=== PATIENT | male | born 1975 | race Caucasian/White ===

== ENCOUNTER 2016-06-17 17:55 | Emergency (ER) | payer BC ==
[2016-06-17] MEDS ORDERED: Ondansetron HCl/PF 4 MG/2 ML Vial ONE (18:32)
[2016-06-17 18:37] LABS: #Eosinphils 0.2 thou/uL (0.0-0.7); #Lymphocytes 2.3 thou/uL (1.20-3.40); #Monocytes 0.8 thou/uL (0.11-0.59); #Neutrophils 9.4 thou/uL (1.40-6.50); %Basophils 0.4 % (0.0-1.0); %Eosinophils 1.7 % (0.0-10.0); %Lymphocytes 18.2 % (21.0-51.0); %Monocytes 6.4 % (0.0-10.0); %Neutrophils 73.3 % (42.0-75.0); Hemoglobin 15.6 g/dL (14.0-18.0); Mean Corpuscular HGB CONC 34.1 g/dL (32.0-36.0); Mean Corpuscular Hemoglobin 31.5 pg (27.0-31.0); Mean Corpuscular Volume 92.3 fl (80.0-94.0); Mean Platelet Volume 7.4 fL (7.4-10.4); Platelet Count 266 thou/uL (130-400); RBC Distribution Width 11.8 % (11.5-14.5); Red Blood Cell (RBC) Count 4.95 mill/uL (4.70-6.10); White Blood Cell (WBC) Count 12.8 thou/uL (4.8-10.8)
[2016-06-17 18:56] LABS: ALT (SGPT) 81 U/L (0-55); AST (SGOT) 57 U/L (5-34); Albumin 4.8 g/dL (3.5-5.0); Alkaline Phosphatase 57 U/L (40-150); Anion Gap 19 mmol/L (10-20); BUN (Urea Nitrogen) 16 mg/dL (8.9-20.6); Bilirubin, Total 0.5 mg/dL (0.2-1.2); Calc. Creatinine Clearance 0 mL/min (70-130); Carbon Dioxide 24 mmol/L (22-29); Chloride 101 mmol/L (98-107); Estimated GFR-MDRD 73; Glucose 108 mg/dL (70-105); Lipase 10 U/L (8-78); Potassium 4.3 mmol/L (3.5-5.1); Protein, Total 7.8 g/dL (6.0-8.3); Sodium 140 mmol/L (136-145)
[2016-06-17] MEDS ORDERED: Ketorolac Tromethamine 30 MG/ML VIAL ONE (19:01)
--- NOTE | 2016-06-17 20:33 | CT ---
ABDOMEN CT WITH CONTRAST PELVIS CT WITH CONTRAST HISTORY: Left-sided flank pain. COMPARISON: None. TECHNIQUE: An abdomen and pelvis CT are performed without IV or oral contrast, utilizing a renal stone protocol . Coronal reformatted images are submitted for interpretation. FINDINGS ABDOMEN: The lungs bases are clear. There is a limited evaluation of the solid organs, due to lack of IV contrast. Grossly normal atten uation of the spleen, pancreas, and adrenal glands. Diffuse hypoattenuation of the liver, due to hepatic steatosis. A focal area of fatty sparing in th e caudate lobe is noted. The gallbladder is unremarkable. No mesenteric mass, lymphadenopathy, free air, or free fluid. Limited evaluation of the alimentary canal due to lack of oral contrast. No evidence of bowel obstr uction. The ileocecal junction is normal. The appendix is not appreciated. Scattered fecal materi al in a nondistended, nondilated colon. Symmetric attenuation of the psoas muscles. Bilaterally, no hydronephrosis, nephrolithiasis, or perinephric fat stranding. Minimally asymmetric prominence of the visualized left ureter without evidence of ureterolithiasis. Right extrarenal co llecting system is unremarkable. There is a hypodensity in the upper pole of the right kidney, measu ring 1 cm. Incomplete evaluation. PELVIS: No mass, lymphadenopathy, free air, or free fluid. There is a punctate calcification at th e left aspect of the urinary bladder, suggesting a recently passed calculus, measuring 0.4 mm. IMPRESSION: 1. Minimal left-sided obstructive uropathy. There appears to be a calcification that has recently passed and is now at the left aspect of the urinary bladder. 2. Hepatic steatosis. 3. Hypodensity involving the right renal cortex, incompletely evaluated. POS: [facility]
== END 2016-06-17 20:26 | disposition home or self-care (01) ==
LOC: MADERS 17:55
DX: N20.0 Calculus of kidney (principal)
CPT/HCPCS: 36415; 74176; 80053; 83690; 85025; 96374; 96375; J1885; J2270; J2405